=== PATIENT | male | born 1980 | race Caucasian/White ===

== ENCOUNTER 2021-12-20 04:11 | Emergency (ER) | payer OTHER ==
[2021-12-20] MEDS ORDERED: DOXYCYCLINE HYCLATE 100 MG CAPSULE PO ONE ×2 (05:14→05:50)
[2021-12-20 05:32] VITALS: BP 128/79; PULSE 84; TEMP 97.6; BMI 24.2
[2021-12-20] MEDS ORDERED: LIDOCAINE HCL 1%, 10 MG/ML (20ML VIAL) ONE (05:51)
[2021-12-20] MEDS ORDERED: LIDOCAINE HCL 1%, 10 MG/ML (50 mL VIAL) SQ ONE (05:52)
[2021-12-20 06:40] LABS: EPI CELLS 11 /uL (0-25.1); HYALINE CASTS 5 /uL (0-3.1); URINE APPEARANCE CLEAR; URINE BACTERIA 9 /uL (0-1359); URINE BILIRUBIN NEGATIVE (NEGATIVE); URINE COLOR YELLOW; URINE GLUCOSE (UA) NEGATIVE (NEGATIVE); URINE KETONE NEGATIVE (NEGATIVE); URINE LEUK ESTERASE 1+ (NEGATIVE); URINE NITRITE NEGATIVE (NEGATIVE); URINE PROTEIN NEGATIVE (NEGATIVE); URINE RBC 5 /uL (0-23.9); URINE UROBILINOGEN 0.2 mg/dL (0.2-1.0); URINE WBC 102 /uL (0-25.8)
[2021-12-20 12:05] LABS: HIV INTERPRETATION NEGATIVE (NEGATIVE)
== END 2021-12-20 06:29 | disposition home or self-care (01) ==
LOC: JER 04:11
DX: N34.2 Other urethritis (principal); N50.9 Disorder of male genital organs, unspecified
CPT/HCPCS: 36415; 81003; 86780; 87086; 87389; 87491; 87591; 99284-25

== ENCOUNTER 2022-03-03 10:12 | Emergency (ER) | payer OTHER ==
[2022-03-03 10:33] VITALS: BP 133/85; PULSE 75; RESP 18; TEMP 98.5; BMI 27.3
== END 2022-03-03 11:27 | disposition home or self-care (01) ==
LOC: JERFT 10:12
DX: H00.012 Hordeolum externum right lower eyelid (principal)
CPT/HCPCS: 99283-25

== ENCOUNTER 2022-04-25 04:29 | Emergency (ER) | payer OTHER ==
[2022-04-25 04:47] VITALS: BP 118/79; PULSE 78; RESP 20; TEMP 98.2; BMI 25.8
== END 2022-04-25 05:41 | disposition home or self-care (01) ==
LOC: JER 04:29
DX: N48.89 Other specified disorders of penis (principal)
CPT/HCPCS: 99281-25

== ENCOUNTER 2022-08-24 18:55 | Emergency (ER) | payer OTHER ==
[2022-08-24 19:08] VITALS: BP 125/80; PULSE 82; RESP 17; TEMP 98.3; BMI 28.0
== END 2022-08-24 19:52 | disposition home or self-care (01) ==
LOC: JERFT 18:55
PROC: 0H9QXZZ Drainage of Finger Nail, External Approach (ICD-10-PCS; principal; 2022-08-24)
DX: L03.011 Cellulitis of right finger (principal)
CPT/HCPCS: 99282-25

== ENCOUNTER 2023-01-23 01:44 | Emergency (ER) | payer OTHER ==
[2023-01-23 02:04] VITALS: BP 151/92; PULSE 69; RESP 18; TEMP 98.1; BMI 26.6
[2023-01-23 02:51] LABS: PH,URINE 6.5 (5.0-8.0); URINE APPEARANCE CLEAR; URINE BILIRUBIN NEGATIVE (NEGATIVE); URINE COLOR YELLOW; URINE GLUCOSE (UA) NEGATIVE (NEGATIVE); URINE KETONE NEGATIVE (NEGATIVE); URINE LEUK ESTERASE NEGATIVE (NEGATIVE); URINE NITRITE NEGATIVE (NEGATIVE); URINE PROTEIN NEGATIVE (NEGATIVE)
[2023-01-23] MEDS ORDERED: IBUPROFEN 600 MG TABLET (FP) PO ONE ×2 (03:01→03:07)
[2023-01-23] MEDS ORDERED: LIDOCAINE HCL 1%, 10 MG/ML (10ML VIAL) MDV ONE (04:24)
[2023-01-23] MEDS ORDERED: AZITHROMYCIN 500 MG TABLET PO ONE (04:29)
[2023-01-23] MEDS ORDERED: AZITHROMYCIN 500 MG TABLET ONE (04:33)
== END 2023-01-23 04:54 | disposition home or self-care (01) ==
LOC: JER 01:44
DX: N50.812 Left testicular pain (principal)
CPT/HCPCS: 36415; 81003; 87086; 87491; 87591; 87661; 99284-25